=== PATIENT | male | born 1955 | race Caucasian/White ===

== ENCOUNTER 2018-02-28 10:36 | Emergency (ER) | payer OTHER ==
[2018-02-28] MEDS ORDERED: ONDANSETRON 4 MG/2 ML VIAL IVP ONE (11:10)
[2018-02-28] MEDS ORDERED: NS 1,000 ML IV ONE ×2 (11:12)
--- NOTE | 2018-02-28 11:13 | EDPHY ---
H & P Stated Complaint: cough for 1 week and n/v/d and syncope x 2 last pm Time Seen by Provider: 02/28/18 10:42 HPI/ROS: 62 yo M with multiple complaints including cough, post nasal drip for approx one week, then profuse diarrhea and vomiting that began last night and was associated with 2 x syncopal episodes. No chest pain, mild headache where he hit his head, no neck pain. No sore throat,no rashes. Review of systems As per HPI General pos fever and chills, no weakness HEENT no eye pain no eye discharge. No eye redness, no sore throat Respiratory pos post nasal drip and pos cough, no shortness of breath Cardiac no chest pain, no peripheral edema GI no abdominal pain, positive diarrhea, positive nausea, positive vomiting no flank pain, no hematuria, no dysuria Musculoskeletal no myalgias, no joint pain Heme no easy bruising, no easy bleeding Endo no polyuria, no polydipsia Skin no rashes, no pruritus Neuro no syncope, no dizziness, no headaches Source: Patient, Family Exam Limitations: No limitations - Personal History Current Tetanus/Diphtheria Vaccine: Unsure Current Tetanus Diphtheria and Acellular Pertussis (TDAP): Unsure - Medical/Surgical History Hx Asthma: No Hx Chronic Respiratory Disease: No Hx Diabetes: No Hx Cardiac Disease: No Hx Renal Disease: No Hx Cirrhosis: No Hx Alcoholism: No Hx HIV/AIDS: No Hx Splenectomy or Spleen Trauma: No Other PMH: hernia repair. acl surgery - Family History Significant Family History: No pertinent family hx - Social History Smoking Status: Never smoked - Physical Exam Exam: 62-year-old male Alert and oriented nontoxic appearance, no acute distress afebrile Atraumatic normocephalic, positive ecchymosis on right forehead with slight abrasion on right parietal scalp Extraocular muscles intact, anicteric Nares mild yellowish discharge Oropharynx mild erythema no tonsillar swelling no exudate no uvular deviation, tolerating own secretions Neck supple no lymphadenopathy Lungs clear to auscultation bilaterally Heart regular rate and rhythm Abdomen normoactive bowel sounds soft nontender Extremities no cyanosis clubbing or edema Skin no rash Neuro-alert and oriented, cranial nerves intact, gait intact, speech intact, negative drift normal motor strength Constitutional: Initial Vital Signs Temperature (C) 37.6 C 02/28/18 10:48 Heart Rate 70 02/28/18 10:48 Respiratory Rate 16 02/28/18 10:48 Blood Pressure 112/67 02/28/18 10:48 O2 Sat (%) 94 02/28/18 10:48 O2 Delivery Mode Room Air Allergies/Adverse Reactions: No Known Allergies Allergy (Verified 02/28/18 10:52) Home Medications: Medication Instructions Recorded Cephalexin [Keflex] 500 mg PO BID #10 cap 07/07/11 Miscellaneous Medical Supply [NO ea MISC AD 07/07/11 HOME MEDS] Medical Decision Making - Diagnostics Imaging Results: Imaging Impressions Chest X-Ray 02/28/18 11:13 Impression: No pneumonia or effusion. Head CT 02/28/18 11:13 Impression: Normal noncontrast CT of the brain. Results called to Dr. Susannah Barraza at 11:30 AM at the time of the interpretation. ED Course/Re-evaluation: pt seen and evaluated for n,v,d,syncope, cough. IV established EKG done- nsr, no ectopy, no ischemic changes Normal saline started, pt given 2 liters for dehydration also given Ondansetron for nausea and given toradol for low grade fever and bodyaches Influenza neg CBC wnl BMP elevated BUN after fluids and medications, pt now tolerating po and has made urine Imp dehydration secondary to viral syndrome vasovagal syncope Plan discharge home rest, drink plenty of liquids, gradually advance diet as tolerated return if worsen f/u pcp Differential Diagnosis: Differential diagnosis considered but not limited to: Gastroenteritis, influenza, viral syndrome, bronchitis, pneumonia, dehydration, syncope, epidural, subdural, arrhythmia - Data Points Laboratory Results: 02/28/18 11:14 POC Sodium 140 mEq/L mEq/L (135-145) POC Potassium 3.3 mEq/L mEq/L (3.3-5.0) POC Chloride 102.0 mEq/L mEq/L (97-110) POC Total CO2 26 mEq/L mEq/L (22-31) POC BUN 27 mg/dL H mg/dL (7-23) POC Creatinine 1.3 mg/dL mg/dL (0.7-1.3) POC Glucose 126 mg/dL H mg/dL (70-100) POC Calcium 9.2 mg/dL mg/dL (8.5-10.4) Medications Given: Discontinued Medications Sodium Chloride (Ns) 1,000 mls @ 0 mls/hr IV EDNOW ONE; Wide Open PRN Reason: Protocol Stop: 02/28/18 11:13 Last Admin: 02/28/18 12:15 Dose: 1,000 mls Sodium Chloride (Ns) 1,000 mls @ 0 mls/hr IV EDNOW ONE; Wide Open PRN Reason: Protocol Stop: 02/28/18 11:13 Last Admin: 02/28/18 11:15 Dose: 1,000 mls Ketorolac Tromethamine (Toradol) 30 mg IVP EDNOW ONE Stop: 02/28/18 12:00 Last Admin: 02/28/18 12:29 Dose: 30 mg Ondansetron HCl (Zofran) 4 mg IVP EDNOW ONE Stop: 02/28/18 11:11 Last Admin: 02/28/18 11:16 Dose: 4 mg Point of Care Test Results: CBC CBC Collection Date 02/28/18 CBC Collection Time 11:10 WBC 6.8 RBC 4.82 HGB 14.7 HCT 41.8 PLT 265 Neut # 6.6 Neut 96.2 LYMPH # 0.1 LYMPH 2.2 Other WBC # 0.1 Other WBC 1.6 MCV 86.7 Chemistry 02/28/18 11:14 POC Sodium 140 mEq/L mEq/L (135-145) POC Potassium 3.3 mEq/L mEq/L (3.3-5.0) POC Chloride 102.0 mEq/L mEq/L (97-110) POC Total CO2 26 mEq/L mEq/L (22-31) POC BUN 27 mg/dL H mg/dL (7-23) POC Creatinine 1.3 mg/dL mg/dL (0.7-1.3) POC Glucose 126 mg/dL H mg/dL (70-100) POC Calcium 9.2 mg/dL mg/dL (8.5-10.4) Influenza PCR Flu Nasal Swab Collection Date 02/28/18 Flu Nasal Swab Collection Time 11:05 Influenza A Result Not Detected Influenza B Result Not Detected Departure - Departure Disposition: Home, Routine, Self-Care Clinical Impression: Dehydration, Syncope, Contusion of head, Nausea vomiting and diarrhea, Acute bronchitis Condition: Good Instructions: Dehydration (ED), Syncope (ED), Viral Syndrome (ED) Referrals: Fransisco Mancilla MD [Primary Care Provider] - As per Instructions
[2018-02-28] MEDS ORDERED: KETOROLAC 30 MG/1 ML SDV IVP ONE (11:59)
--- NOTE | 2018-02-28 12:14 | CPEKG ---
Test Reason : OPEN Blood Pressure : / mmHG Vent. Rate : 064 BPM Atrial Rate : 064 BPM P-R Int : 159 ms QRS Dur : 091 ms QT Int : 410 ms P-R-T Axes : 042 006 028 degrees QTc Int : 423 ms Sinus rhythm Abnormal R-wave progression, early transition Confirmed by Susannah Barraza ([id number]) on 02/28/2018 12:14:31 PM Referred By: Confirmed By:Susannah Barraza
[2018-02-28 14:08] VITALS: BP 101/57
== END 2018-02-28 14:25 | disposition home or self-care (01) ==
LOC: CED 10:36
DX: S00.93XA Contusion of unspecified part of head, initial encounter (principal); R55 Syncope and collapse; J40 Bronchitis, not specified as acute or chronic; E86.0 Dehydration; W19.XXXA Unspecified fall, initial encounter; Y92.9 Unspecified place or not applicable; Y93.9 Activity, unspecified; Y99.9 Unspecified external cause status
CPT/HCPCS: 70450-PO; 71046-PO; 80048-ER; 96361-ER; 96374-ER; 96375-ER; J1885; J2405